=== PATIENT | male | born 1990 | race Caucasian/White ===

== ENCOUNTER 2020-06-13 14:44 | Emergency (ER) | payer BC, SELFPAY ==
--- NOTE | 2020-06-13 15:02 | ED.SKABFB ---
HPI - Skin/Abscess/Foreign Bdy General Chief complaint: Wound/Laceration Stated complaint: Stitch removal Time Seen by Provider: 06/13/20 15:05 Source: patient and RN notes reviewed Mode of arrival: ambulatory Limitations: no limitations History of Present Illness HPI narrative: 30-year-old male presents for suture removal.. Reports on May 25 he had 6 sutures placed in the second digit of his left hand after a dog bite. Reports he was given antibiotics at that time. He denies complications such as redness, swelling, drainage from the wound. MD complaint: laceration Related Data Home Medications Medication Instructions Recorded Confirmed fluoxetine 40 mg PO DAILY 06/13/20 06/13/20 Allergies Allergy/AdvReac Type Severity Reaction Status Date / Time No Known Allergies Allergy Unverified 04/15/18 16:40 Review of Systems Review of Systems: Narrative: CONSTITUTIONAL: Denies malaise, chills, sweats, or fever. SKIN: Reports sutures to the second of the left hand MUSCULOSKELETAL: Denies muscle skeletal pain NEUROLOGIC: Denies numbness, weakness. All systems reviewed & are unremarkable except as noted in HPI and below PMFSH Social History Social History Gender identity (if verbalized by the patient): Male Comments At time of signature, agree with nursing past medical, surgical, social and family history. There is no relevant family history pertinent to the presenting complaint Exam Narrative: Exam Narrative: GENERAL: Well-appearing, well-nourished, and in no acute distress. HEAD: Normocephalic EYES: PERRLA, conjunctivae clear ENT: Mucous membranes moist. NECK: Supple. No lymphadenopathy CHEST: Clear to auscultation. No respiratory distress. HEART: Regular rate and rhythm. SKIN: Warm, dry. 6 intact sutures noted to the second digit of the left hand without surrounding erythema, induration, drainage NEURO: Alert and oriented x3. PSYCH: Normal mood and affect Course Course Emergency Course: Patient is aware of diagnosis, understands and agrees to treatment plan. Anticipatory guidance given. Patient agrees to follow-up as directed and is aware of reasons to seek care at the emergency department. Portions of this record may have been created with voice recognition software Vital Signs Vital signs: Vital Signs Temperature 98.1 F 06/13/20 15:10 Pulse Rate 105 H 06/13/20 15:10 Respiratory Rate 14 06/13/20 15:10 Blood Pressure 140/99 H 06/13/20 15:10 Pulse Oximetry 97 06/13/20 15:10 Temperature 98.1 F 06/13/20 15:10 Pulse Rate 105 H 06/13/20 15:10 Respiratory Rate 14 06/13/20 15:10 Blood Pressure 140/99 H 06/13/20 15:10 Pulse Oximetry 97 06/13/20 15:10 Reviewed. MDM - Skin/Abscess/Foreign Bdy MDM Narrative Medical decision making narrative: Verbal consent was obtained. Wound well approximated, no erythema, induration, or discharge noted. 6 sutures completely removed in a sterile fashion. Patient tolerated procedure well, no complications. Patient advised to look for and return for any signs of infection such as redness, swelling, discharge, or worsening pain. Critical Care Time Critical Care Time Critical Care Time: No Discharge Plan Discharge Prescriptions: No Action fluoxetine 40 mg capsule 40 mg PO DAILY RF: 0
[2020-06-13 15:10] VITALS: BP 140/99; PULSE 105; RESP 14; TEMP 36.7; O2SAT 97
== END 2020-06-13 15:48 | disposition home or self-care (01) ==
PROVIDERS: Emergency Provider Nurse Practitioner
DX: S61.211D Laceration without foreign body of left index finger without damage to nail, subsequent encounter (principal); W54.0XXD Bitten by dog, subsequent encounter; F41.0 Panic disorder [episodic paroxysmal anxiety]
CPT/HCPCS: 99211; G0463

== ENCOUNTER 2022-01-14 13:04 | Emergency (ER) | payer BC, SELFPAY ==
--- NOTE | 2022-01-14 13:07 | ED.CHESTPAIN ---
HPI - Chest Pain General Chief Complaint: Unspecified Stated Complaint: high blood pressure not sleeping/chest pains Time Seen by Provider: 01/14/22 13:07 Source: patient and RN notes reviewed History of Present Illness HPI narrative: Patient is a 31-year-old male who presents to the urgent care with his father with complaints of weight gain, high blood pressure, chest discomfort and he believes he has sleep apnea. Patient states is been ongoing for months and he has been to the ER in the last year for complete work-up. Patient states that his primary care doctor is not convenient because he is in [facility] and he is recently accepted a new job and is moving from this area in approximately 1 month. Patient states that he has had his thyroid checked with its been a couple years. Patient is currently denying any chest pain. Patient is tearful and obviously anxious. Patient's father does have a history of hyperthyroidism. Patient states that he was on Prozac and was told that he was having panic attacks and recently took himself off the medication approximately 5 or 6 months ago. Patient states he does not feel that his symptoms have gotten any worse since then and does not believe that he has anxiety or panic attacks. Noother acute complaints. Patient and father aware of the plan of care. Some parts of this dictation were generated by voice recognition software and may contain typographical and/or grammatical inaccuracies. Related Data Allergies Allergy/AdvReac Type Severity Reaction Status Date / Time No Known Allergies Allergy Unverified 01/14/22 13:16 Review of Systems Review of Systems: CONSTITUTIONAL: Denies fever, chills, or sweats. EYES: Denies visual changes, redness, or discharge. ENT: Denies rhinorrhea, congestion, sore throat, or otalgia. CARDIOVASCULAR: Reports of waking up with palpitations RESPIRATORY: Reports of waking up with coughing and feeling like he is suffocating GASTROINTESTINAL: Denies abdominal pain, nausea, vomiting, or diarrhea. GENITOURINARY: Denies dysuria or hematuria. SKIN: Denies rash or itching. MUSCULOSKELETAL: Denies back pain, joint pain, or myalgia. NEUROLOGIC: Denies headache, numbness, or weakness. PSYCHIATRIC: History of anxiety All other systems reviewed are negative, except as documented in HPI. [facility] Social History Social History Gender identity (if verbalized by the patient): Male Comments At the time of my signature, I reviewed and agree with the nursing past medical, surgical, social, and family history. There is no relevant family history pertinent to the patient complaint. Exam Narrative: GENERAL: This is a well-nourished, well-developed patient. Patient tearful and anxious HEAD: normocephalic, atraumatic. EYES: PERRL. Sclera clear/white. Vision is grossly intact. EARS: External ears normal NOSE: External nose normal with no obvious nasal discharge, nares without redness, no rhinorrhea. THROAT: Mucous membranes moist, posterior pharynx clear. NECK: Neck supple, possiblethyromegaly. CARDIOVASCULAR: Regular rate and rhythm without murmurs, gallops, or rubs. RESPIRATORY: Clear to auscultation. Breath sounds equal bilaterally. No wheezes, rales, or rhonchi. SKIN: warm, intact with no suspicious lesions or rash, good texture and turgor. NEURO: awake, alert, and oriented to person, place and time. There were no obvious focal neurologic abnormalities. EXTREMITIES: No clubbing, cyanosis, or edema. Course Course Level of Care: Express Care Visit Vital Signs Vital signs: Vital Signs Temperature 98.9 F 01/14/22 13:12 Pulse Rate 96 01/14/22 13:12 Respiratory Rate 18 01/14/22 13:12 Blood Pressure 139/97 H 01/14/22 13:12 Pulse Oximetry 100 01/14/22 13:12 Oxygen Delivery Room Air 01/14/22 13:12 Temperature 98.9 F 01/14/22 13:16 Pulse Rate 96 01/14/22 13:16 Respiratory Rate 18 01/14/22 13:16 Blood Pressure 139/97 H 01/14/22 13:16 Pulse Oxim
--- NOTE | 2022-01-14 13:11 | ECG_ITS ---
Measurements Intervals [place] Rate: 80 P: 58 TN: 133 QRS: 14 QRSD: 99 T: 38 QT: 349 QTc: 404 Interpretive Statements SINUS RHYTHM RSR' IN V1 OR V2, PROBABLY NORMAL VARIANT MINIMAL Q WAVES- HIGH LATERAL LEADS BORDERLINE ECG Electronically Signed On 01-14-2022 13:50:01 CDT by Juan Christina D.O.
[2022-01-14 13:12] VITALS: BP 139/97; PULSE 96; RESP 18; TEMP 37.2; O2SAT 100
[2022-01-14 13:16] VITALS: BP 139/97; PULSE 96; RESP 18; TEMP 37.2; O2SAT 100
== END 2022-01-14 13:40 | disposition home or self-care (01) ==
PROVIDERS: Emergency Provider Nurse Practitioner Family
DX: F41.9 Anxiety disorder, unspecified (principal)
CPT/HCPCS: 93005; 99213; G0463